=== PATIENT | female | born 1975 | race Caucasian/White ===

== ENCOUNTER 2016-11-16 16:10 | Emergency (ER) | payer SELFPAY ==
[~2016-11-16] VITALS: Ht 167.6 cm; Wt 63.5 kg
[~2016-11-16 16:10] MED LIST: CYCL5TAB PO; LEXA10TA PO; NAPR500 PO
[2016-11-16 16:12] VITALS: BP 125/60; PULSE 88; RESP 20; TEMP 98.7; O2SAT 98
--- NOTE | 2016-11-16 16:23 | PD ---
HPI Chief Complaint: Back/ Neck Pain or Injury Time Seen by Provider: 16:23 Travel History International Travel<30 days: No Contact w/Intl Traveler<30days: No Traveled to known affect area: No History of Present Illness HPI 41-year-old female presents the emergency department status post falling over her dog ago. Patient now has pain at the base of her thoracic spine, with bilateral radiation of discomfort with walking or motion. Patient denies shortness of breath or abdominal pain. Patient denies urinary symptoms or bowel symptoms. Patient states she did not hit her head or have loss of consciousness. She has no neck or upper extremity pain. Pain is an 8/10. She' s been taking ibuprofen without improvement. She is allergic to Ceftin, cephalosporins, penicillin, and sulfa. PFSH Past Medical History Anxiety: Yes Depression: Yes Diminished Hearing: No Kidney Stones: Yes ?: Not LMP: 3 WEEK AGO : 2 Para: 0 Miscarriage: 0 : 2 Ovarian Cysts: Yes Past Surgical History Other Surgery: Yes (BREAST AUGMENTATION) Social History Alcohol Use: Yes (OCCASIONAL) Tobacco Use: Yes (1 PPD) Substance Use: No Allergies-Medications (Allergen,Severity, Reaction): Coded Allergies: Ceftin (Verified Allergy, Severe, HIVES, 11/16/16) Cephalosporins (Verified Allergy, Severe, 11/16/16) Keflex (Verified Allergy, Severe, Hives, 11/16/16) Penicillin (Verified Allergy, Severe, 11/16/16) Sulfa (Verified Allergy, Severe, HIVES, 11/16/16) Reported Meds & Prescriptions Reported Meds & Active Scripts Active Ibuprofen 600 Mg Tab 600 Mg PO Q6H PRN Tramadol (Tramadol HCl) 50 Mg Tab 50 Mg PO Q6H PRN Orphenadrine CR (Orphenadrine Citrate) 100 Mg Tab 100 Mg PO Q12HR Flexeril (Cyclobenzaprine HCl) 5 Mg Tab 5-10 Mg PO Q8HPRN 14 Days Naprosyn (Naproxen) 500 Mg Tab 500 Mg PO BIDPRN 30 Days Reported Lexapro (Escitalopram Oxalate) 10 Mg Tab 10 Mg PO DAILY Review of Systems Except as stated in HPI: all other systems reviewed are Neg General / Constitutional: No: Fever Eyes: No: Visual changes HENT: No: Headaches Cardiovascular: No: Chest Pain or Discomfort Respiratory: No: Shortness of Breath Gastrointestinal: No: Abdominal Pain Genitourinary: No: Dysuria Musculoskeletal: Positive: Arthralgias (see history present illness.), Limited ROM, Pain Skin: No Rash Neurologic: No: Weakness Psychiatric: No: Depression Endocrine: No: Polydipsia Hematologic/Lymphatic: No: Easy Bruising Physical Exam Narrative GENERAL: Patient appears in moderate distress. SKIN: Warm and dry. Normal color. Normal turgor. HEAD: Atraumatic. Normocephalic. Nontender. EYES: Pupils equal and round. No scleral icterus. No injection or drainage. ENT: No nasal bleeding or discharge. Mucous membranes pink and moist. No dental injury. Pharynx is clear. Airway is patent. NECK: Trachea midline. No bony tenderness or step-off. Range of motion is full without tenderness. CARDIOVASCULAR: Regular rate and rhythm. RESPIRATORY: No accessory muscle use. Clear to auscultation. Breath sounds equal bilaterally. No rib tenderness with palpation. MUSCULOSKELETAL: Extremities without clubbing, cyanosis, or edema. No obvious deformities. Patient has specific point tenderness at the T11 12 level. No CVA tenderness. Rest of musculoskeletal exam is normal. NEUROLOGICAL: Awake and alert. No obvious cranial nerve deficits. Motor grossly within normal limits. Five out of 5 muscle strength in the arms and legs. Normal speech. PSYCHIATRIC: Appropriate mood and affect; insight and judgment normal. Data Data Last Documented VS Vital Signs Date Time Temp Pulse Resp B/P Pulse Ox O2 Delivery O2 Flow Rate FiO2 11/16/16 16:12 98.7 88 20 125/60 98 Room Air Orders Spine, Thoracic-Ap/Lat/Sw(3vw) (11/16/16 16:26) [facility] Medical Decision Making Medical Screen Exam Complete: Yes Emergency Medical Condition: Yes Differential Diagnosis Fall from tripping. Thoracic strain. Thoracic hyperextension injury. Possible fracture. Narrative Course Patient medically stable at time of exam. Patient was offered Toradol but refused. X-rays of the thoracic spine were obtained. X-ray showed no acute fracture or other findings per radiologist. Patient is given ibuprofen 600 mg 4 times a day #40. Patient is given tramadol 50 mg one every 6 hours when necessary #20. Patient is given Norflex 100 mg twice a day when necessary #10. Patient is use heat, ice, and gentle stretching and follow-up if symptoms are not improving. Diagnosis Primary Impression: Fall from other slipping, tripping, or stumbling Additional Impression: Acute thoracic myofascial strain Qualified Code: S29.019A - Acute thoracic myofascial strain, initial encounter Referrals: Primary Care Physician Patient Instructions: General Instructions, Thoracic Back Strain (ED) Additional Instructions: X-ray showed no acute fracture or other findings per radiologist. Patient is given ibuprofen 600 mg 4 times a day #40. Patient is given tramadol 50 mg one every 6 hours when necessary #20. Patient is given Norflex 100 mg twice a day when necessary #10. Patient is use heat, ice, and gentle stretching and follow-up if symptoms are not improving. Med/Other Pt SpecificInfo: Prescription(s) given Scripts Ibuprofen 600 Mg [id number] Mg PO Q6H PRN (Pain/Inflammation) #40 TAB Prov:Tamiko Ramirez MD 11/16/16 Tramadol 50 Mg Tab50 Mg PO Q6H PRN (PAIN) #20 TAB Prov:Tamiko Ramirez MD 11/16/16 Orphenadrine ER 12 HR (Orphenadrine CR)100 Mg [id number] Mg PO Q12HR #10 TAB Prov:Tamiko Ramirez MD 11/16/16 Disposition: 01 DISCHARGE HOME Condition: Stable Abad Balderas Nov 16, 2016 16:23
--- NOTE | 2016-11-16 16:56 | RADRPT ---
EXAM DATE/TIME: 11/16/2016 16:43 [facility] COMPARISON: No previous studies available for comparison. INDICATIONS : Upper back pain, fell MEDICAL HISTORY : None. SURGICAL HISTORY : None. ENCOUNTER: Initial ACUITY: 4 - 6 days PAIN SCORE: 9/10 LOCATION: Thoracic FINDINGS: There is normal alignment of the thoracic vertebral bodies. Vertebral body height is maintained. No evidence of fracture or subluxation. Pedicles are intact at all levels. The paravertebral reflecti ons are not thickened. CONCLUSION: 1. Mild degenerative disc disease in the thoracic spine. No acute findings. Capsular calcifications n oted incidentally around breast augmentation. Anthony Hernandez MD on November 16, 2016 at 16:53 Board Certified Radiologist. This report was verified electronically.
[2016-11-16] MEDS ORDERED: TRAM50TA PO (17:16)
[2016-11-16] MEDS ORDERED: IBUP-232 PO (17:16)
[2016-11-16] MEDS ORDERED: ORPH100T99 PO (17:16)
== END 2016-11-16 17:42 | disposition home or self-care (01) ==
LOC: NEPA 16:10
DX: S29.012A Strain of muscle and tendon of back wall of thorax, initial encounter (principal); W01.0XXA Fall on same level from slipping, tripping and stumbling without subsequent striking against object, initial encounter
CPT/HCPCS: 72072; 99284

== ENCOUNTER 2017-02-28 19:58 | Emergency (ER) | payer SELFPAY ==
[~2017-02-28] VITALS: Ht 167.6 cm; Wt 65.0 kg
[~2017-02-28 19:58] MED LIST changes: +IBUP-232 PO; +ORPH100T99 PO; +TRAM50TA PO
[2017-02-28 20:00] VITALS: BP 129/73; PULSE 127; RESP 16; TEMP 100.4; O2SAT 98
--- NOTE | 2017-02-28 21:12 | PD ---
HPI Chief Complaint: GI Complaint Time Seen by Provider: 21:07 Travel History International Travel<30 days: No Contact w/Intl Traveler<30days: No Traveled to known affect area: No History of Present Illness HPI 41-year-old white female presents to emergency department with complaints of nausea vomiting. She states that this started earlier this afternoon. She has had 2 episodes of vomiting. She reports some mild dysuria. Last period was 2- 3 weeks ago. She was in her normal state of health yesterday. She reports having had some upper rest her symptoms earlier last week but that has significantly improved. She has had no fever chills. No chest pain or shortness of breath. No abdominal pain, frequency, vaginal discharge or abnormal bleeding. PFSH Past Medical History Narrative Medical Kidney stones, Anxiety and depression Anxiety: Yes Depression: Yes Diminished Hearing: No Kidney Stones: Yes Immunizations Current: No Tetanus Vaccination: < 5 Years Influenza Vaccination: No ?: Not LMP: 02/22/2017 : 2 Para: 0 Miscarriage: 0 : 2 Ovarian Cysts: Yes Past Surgical History Narrative Surgical Breast augmentation Other Surgery: Yes (BREAST AUGMENTATION) Social History Alcohol Use: Yes (OCCASIONAL) Tobacco Use: Yes (1 PPD) Substance Use: No Allergies-Medications (Allergen,Severity, Reaction): Coded Allergies: Sulfa (Sulfonamide Antibiotics) (Unverified Allergy, Severe, HIVES, ) cefepime (Unverified Allergy, Severe, 12/31/16) ceftaroline fosamil (Unverified Allergy, Severe, 12/31/16) cefuroxime (Unverified Allergy, Severe, HIVES, 12/31/16) cephalexin (Unverified Allergy, Severe, Hives, 12/31/16) penicillin G (Unverified Allergy, Severe, 12/31/16) Reported Meds & Prescriptions Reported Meds & Active Scripts Active Zofran Odt (Ondansetron Odt) 4 Mg Tab 4 Mg SL Q6HR PRN Macrobid (Nitrofurantoin Monoh/Nitrofur Macro) 100 Mg Cap 100 Mg PO BID Ibuprofen 600 Mg Tab 600 Mg PO Q6H PRN Tramadol (Tramadol HCl) 50 Mg Tab 50 Mg PO Q6H PRN Orphenadrine CR (Orphenadrine Citrate) 100 Mg Tab 100 Mg PO Q12HR Flexeril (Cyclobenzaprine HCl) 5 Mg Tab 5-10 Mg PO Q8HPRN 14 Days Naprosyn (Naproxen) 500 Mg Tab 500 Mg PO BIDPRN 30 Days Reported Lexapro (Escitalopram Oxalate) 10 Mg Tab 10 Mg PO DAILY Review of Systems Except as stated in HPI: all other systems reviewed are Neg General / Constitutional: No: Fever Eyes: No: Visual changes HENT: No: Headaches Cardiovascular: No: Chest Pain or Discomfort Respiratory: No: Shortness of Breath Gastrointestinal: Positive: Nausea, Vomiting, No: Abdominal Pain Genitourinary: Positive: Dysuria, No: Frequency, Pelvic Pain, Discharge Musculoskeletal: No: Pain Skin: No Rash Neurologic: No: Weakness Psychiatric: No: Depression Endocrine: No: Polydipsia Hematologic/Lymphatic: No: Easy Bruising Physical Exam Narrative GENERAL: Well-developed, well-nourished in no acute distress. Nontoxic appearing. HEAD: Normocephalic, atraumatic. EYES: Pupils equal round and reactive. Extraocular motions intact. No scleral icterus. No injection or drainage. ENT: TMs clear without erythema. The external auditory canals clear. Nose: clear . Posterior pharynx is pink and moist. No tonsillar edema or exudate. Uvula midline. Airway patent. NECK: Trachea midline.Supple, nontender, moves head freely. No central bony tenderness or spasm. CARDIOVASCULAR: Regular rate and rhythm without murmurs, gallops, or rubs. RESPIRATORY: Clear to auscultation. Breath sounds equal bilaterally. No wheezes , rales, or rhonchi. GASTROINTESTINAL: Abdomen soft, non-tender, nondistended. No hepato-splenomegaly , or palpable masses. No guarding. EXTREMITIES: No clubbing, cyanosis, or edema. No joint tenderness, effusion, or edema noted. BACK: Nontender without deformity or crepitance. No flank tenderness. Data Data Last Documented VS Vital Signs Date Time Temp Pulse Resp B/P (MAP) Pulse Ox O2 Delivery O2 Flow Rate FiO2 02/28/17 20:00 100.4 127 16 129/73 (91) 98 Room Air Orders Orders Ondansetron Odt (Zofran Odt) (02/28/17 21:15) Urinalysis - C+S If Indicated (02/28/17 21:07) Oral Rehydration (02/28/17 21:07) Ed Urine Pregnancytest Poc (02/28/17 21:07) Urine Culture (02/28/17 21:20) Nitrofurantoin Monohyd Macrocr (Macrobid (02/28/17 22:30) Labs Laboratory Tests Test 02/28/17 21:20 Urine Color YELLOW Urine Turbidity HAZY Urine pH 7.5 Urine Specific [place] 1.018 Urine Protein 30 mg/dL Urine Glucose (UA) NEG mg/dL Urine Ketones NEG mg/dL Urine Occult Blood TRACE Urine Nitrite NEG Urine Bilirubin NEG Urine Urobilinogen 2.0 MG/DL Urine Leukocyte Esterase LARGE Urine RBC 60 /hpf Urine WBC 91 /hpf Urine Squamous Epithelial Cells 3 /hpf Urine Bacteria RARE /hpf Urine Mucus FEW /lpf Microscopic Urinalysis Comment CULTURE INDICATED MDM Medical Decision Making Medical Screen Exam Complete: Yes Emergency Medical Condition: Yes Medical Record Reviewed: Yes Interpretation(s) Laboratory Tests Test 02/28/17 21:20 Urine Color YELLOW Urine Turbidity HAZY Urine pH 7.5 Urine Specific [place] 1.018 Urine Protein 30 mg/dL Urine Glucose (UA) NEG mg/dL Urine Ketones NEG mg/dL Urine Occult Blood TRACE Urine Nitrite NEG Urine Bilirubin NEG Urine Urobilinogen 2.0 MG/DL Urine Leukocyte Esterase LARGE Urine RBC 60 /hpf Urine WBC 91 /hpf Urine Squamous Epithelial Cells 3 /hpf Urine Bacteria RARE /hpf Urine Mucus FEW /lpf Microscopic Urinalysis Comment CULTURE INDICATED Differential Diagnosis Differential diagnosis: Nausea, vomiting, gastroenteritis, , UTI Narrative Course Patient's given Zofran 4 mg by mouth. By mouth challenge along with urinalysis and urine test. Patient's urine reveals an obvious urinary tract infection. She is given Macrobid. 100 mg by mouth. She's been tolerating oral liquids without vomiting. She is feeling much better. This is vomiting, UTI Diagnosis Primary Impression: Vomiting Qualified Codes: R11.2 - Nausea with vomiting, unspecified Additional Impression: UTI (urinary tract infection) Qualified Codes: N30.01 - Acute cystitis with hematuria Patient Instructions: General Instructions Additional Instructions: Rest. Increase fluids. Macrobid and Zofran for nausea.. Follow-up with a primary care doctor in one week. Return to the ER for any problems. Med/Other Pt SpecificInfo: Prescription(s) given Scripts Ondansetron Odt (Zofran Odt) 4 Mg Tab 4 MG SL Q6HR Y for Nausea/Vomiting, #10 TAB 0 Refills Prov: Russ Romero MD 02/28/17 Nitrofurantoin Monohydrate Macrocrystals (Macrobid) 100 Mg Cap 100 MG PO BID for Infection, #20 CAP 0 Refills Prov: Russ Romero MD 02/28/17 Disposition: 01 DISCHARGE HOME Condition: Stable Anthony Gordon Feb 28, 2017 21:12
[2017-02-28] MEDS ORDERED: ONDANSETRON ODT 4 MG TAB PO ONE (21:15)
[2017-02-28 21:45] LABS: BACTERIA, URINE RARE /hpf; BLOOD, URINE TRACE (NEG); COMMENT (UR) CULTURE INDICATED; CULTURE IF INDICATED CULTURE INDICATED; GLUCOSE,URINE NEG (NEG); KETONE, URINE NEG (NEG); MUCUS URINE FEW /lpf (OCC); NITRITE,URINE NEG (NEG); PH, URINE 7.5 (5.0-8.5); SQUAMOUS EPITHELIAL CELL URINE 3 /hpf (0-5); URINE COLOR YELLOW (YELLW/STRAW)
[2017-02-28] MEDS ORDERED: ZOFR4TAB3 SL (22:24)
[2017-02-28] MEDS ORDERED: MACR100C2 PO (22:24)
[2017-02-28] MEDS ORDERED: NITROFURANTOIN MONOHYD MACROCR 100 MG CAP PO ONE (22:30)
== END 2017-02-28 22:42 | disposition home or self-care (01) ==
LOC: NEPD 19:58
DX: N30.01 Acute cystitis with hematuria (principal); R11.2 Nausea with vomiting, unspecified; F41.9 Anxiety disorder, unspecified; F32.9 Major depressive disorder, single episode, unspecified; F17.200 Nicotine dependence, unspecified, uncomplicated; Z79.899 Other long term (current) drug therapy
CPT/HCPCS: 81001; 84703; 87086; 99284

== ENCOUNTER 2017-03-02 05:49 | Emergency (ER) | payer SELFPAY ==
[~2017-03-02] VITALS: Ht 167.6 cm; Wt 67.0 kg
[~2017-03-02 05:49] MED LIST changes: +MACR100C2 PO; +ZOFR4TAB3 SL
[2017-03-02 05:50] VITALS: BP 110/68; PULSE 108; RESP 16; TEMP 99; O2SAT 98
--- NOTE | 2017-03-02 06:10 | PD ---
HPI Chief Complaint: Complaint Time Seen by Provider: 06:06 Travel History International Travel<30 days: No Contact w/Intl Traveler<30days: No Traveled to known affect area: No History of Present Illness HPI PATIENT WAS HERE ON 02/28 AND DIAGNOSED WITH UTI, PLACED ON MACROBID AND ZOFRAN BECAUSE SHE WAS NAUSEOUS. TODAY SHE RETURNS BECAUSE SHE STILL FEELS THE SAME SYMPTOMS (FREQUENCY, DYSURIA, URGENCY) BUT IN ADDITION SHE GOT A "RASH DOWN THERE". PFSH Past Medical History Anxiety: Yes Depression: Yes Diminished Hearing: No Kidney Stones: Yes Immunizations Current: No ?: Not : 2 Para: 0 Miscarriage: 0 : 2 Ovarian Cysts: Yes Past Surgical History Other Surgery: Yes (BREAST AUGMENTATION) Social History Alcohol Use: Yes (OCCASIONAL) Tobacco Use: Yes (1 PPD) Substance Use: No Allergies-Medications (Allergen,Severity, Reaction): Coded Allergies: Sulfa (Sulfonamide Antibiotics) (Unverified Allergy, Severe, HIVES, ) cefepime (Unverified Allergy, Severe, 03/02/17) ceftaroline fosamil (Unverified Allergy, Severe, 03/02/17) cefuroxime (Unverified Allergy, Severe, HIVES, 03/02/17) cephalexin (Unverified Allergy, Severe, Hives, 03/02/17) penicillin G (Unverified Allergy, Severe, 03/02/17) Reported Meds & Prescriptions Reported Meds & Active Scripts Active Pyridium (Phenazopyridine HCl) 100 Mg Tab 100 Mg PO Q8H PRN Acyclovir 800 Mg Tab 800 Mg PO 5 TIMES A DAY Macrobid (Nitrofurantoin Monoh/Nitrofur Macro) 100 Mg Cap 100 Mg PO BID Review of Systems Except as stated in HPI: all other systems reviewed are Neg Genitourinary: Positive: Urgency, Frequency, Dysuria, Dribbling Skin: Positive Rash Physical Exam Narrative GENERAL: SKIN: Warm and dry. HEAD: Atraumatic. Normocephalic. EYES: Pupils equal and round. No scleral icterus. No injection or drainage. ENT: No nasal bleeding or discharge. Mucous membranes pink and moist. NECK: Trachea midline. No JVD. CARDIOVASCULAR: Regular rate and rhythm. RESPIRATORY: No accessory muscle use. Clear to auscultation. Breath sounds equal bilaterally. GASTROINTESTINAL: Abdomen soft, non-tender, nondistended. : WITH RN ANITA AT BEDSIDE: PATIENT HAS MULTIPLE RAISED PAPULAR LESIONS THROUGHOUT THE VULVA AND MONS PUBIS MUSCULOSKELETAL: Extremities without clubbing, cyanosis, or edema. No obvious deformities. NEUROLOGICAL: Awake and alert. No obvious cranial nerve deficits. Motor grossly within normal limits. Five out of 5 muscle strength in the arms and legs. Normal speech. PSYCHIATRIC: Appropriate mood and affect; insight and judgment normal. Data Data Last Documented VS Vital Signs Date Time Temp Pulse Resp B/P (MAP) Pulse Ox O2 Delivery O2 Flow Rate FiO2 03/02/17 05:50 99.0 108 16 110/68 (82) 98 Room Air Orders Orders Fluconazole (Diflucan) (03/02/17 06:45) Phenazopyridine (Pyridium) (03/02/17 06:45) Valacyclovir (Valtrex) (03/02/17 06:45) MDM Medical Decision Making Medical Screen Exam Complete: Yes Emergency Medical Condition: Yes Medical Record Reviewed: Yes Differential Diagnosis UTI V HEAVENLY V ZOSTER Narrative Course PATIENT WAS EVALUATED AND WILL ADD DIFLUCAN WELL PYRIDIUM AND ACYCLOVIR Diagnosis Primary Impression: Zoster Qualified Codes: B02.9 - Zoster without complications Patient Instructions: General Instructions, Shingles (ED) Scripts Phenazopyridine (Pyridium) 100 Mg Tab 100 MG PO Q8H Y for DYSURIA, #15 TAB 0 Refills Prov: Russ Romero MD 03/02/17 Acyclovir (Acyclovir) 800 Mg Tab 800 MG PO 5 TIMES A DAY for Mgmt Viral Infection, #60 TAB 0 Refills Prov: Russ Romero MD 03/02/17 Disposition: 01 DISCHARGE HOME Condition: Stable Russ Romero MD Mar 02, 2017 06:10
[2017-03-02] MEDS ORDERED: ACYC800T PO (06:39)
[2017-03-02] MEDS ORDERED: PHEN0.4T PO (06:39)
[2017-03-02] MEDS ORDERED: FLUCONAZOLE 100 MG TAB PO ONE (06:45)
[2017-03-02] MEDS ORDERED: valACYclovir HCL 500 MG TAB PO ONE (06:45)
[2017-03-02] MEDS ORDERED: PHENAZOPYRIDINE HCL 100 MG TAB PO ONE (06:45)
== END 2017-03-02 07:56 | disposition home or self-care (01) ==
LOC: NEPC 05:49
DX: B02.9 Zoster without complications (principal); R35.0 Frequency of micturition; R30.0 Dysuria; R39.15 Urgency of urination; F17.200 Nicotine dependence, unspecified, uncomplicated; Z86.59 Personal history of other mental and behavioral disorders; Z87.442 Personal history of urinary calculi
CPT/HCPCS: 99284